=== PATIENT | male | born 1970 ===

== ENCOUNTER 2017-10-17 09:27 | Emergency (ER) | payer OTHER ==
[2017-10-17 09:46] VITALS: BMI 28.3
[2017-10-17 09:48] VITALS: BP 124/82; PULSE 85; TEMP 98.9
--- NOTE | 2017-10-17 09:56 | C.PDOC ---
History Of Present Illness 47 years old male presents to ED for complaints of shortness of breath. Patient reports nasal congestion and unable to breathe through nose. He also reports non-productive cough and chest congestion that began 3 days ago. Denies chest pain, Hx of asthma or any other physical complaints. Time Seen by Provider: 10/17/17 09:49 Chief Complaint (Nursing): Shortness Of Breath History Per: Patient History/Exam Limitations: no limitations Onset/Duration Of Symptoms: Days (3) Current Symptoms Are (Timing): Still Present Location Of Pain: None Sick Contacts (Context): None Associated Symptoms: Cough (Non-productive ), Nasal Congestion. denies: Fever, Chills, Nausea, Vomiting, Diarrhea Ear Symptoms: Bilateral: None Recent travel outside of the [place]: No Past Medical History Reviewed: Historical Data, Nursing Documentation, Vital Signs Vital Signs: Last Vital Signs Temp 98.9 F 10/17/17 09:47 Pulse 85 10/17/17 09:47 Resp 18 10/17/17 10:21 BP 124/82 10/17/17 09:47 Pulse Ox 99 10/17/17 11:02 - Medical History PMH: No Chronic Diseases Surgical History: Appendectomy Family History: States: Unknown Family Hx - Social History Hx Alcohol Use: Yes Hx Substance Use: No - Immunization History Hx Tetanus Toxoid Vaccination: No Hx Influenza Vaccination: No Hx Pneumococcal Vaccination: No Review Of Systems Constitutional: Negative for: Fever, Chills Cardiovascular: Negative for: Chest Pain Respiratory: Positive for: Cough (Non-productive ), Shortness of Breath Gastrointestinal: Negative for: Nausea, Vomiting, Abdominal Pain, Diarrhea Skin: Negative for: Rash Neurological: Negative for: Weakness, Numbness Physical Exam - Physical Exam Appears: Well, Non-toxic, No Acute Distress Skin: Warm, Dry Head: Atraumatic, Normacephalic Eye(s): bilateral: Normal Inspection, EOMI Ear(s): Bilateral: Normal Nose: Normal, No Flaring, No Discharge Oral Mucosa: Moist Neck: Supple Chest: Symmetrical, No Tenderness Cardiovascular: Rhythm Regular, No Murmur Respiratory: Normal Breath Sounds, No Decreased Breath Sounds, No Rales, No Rhonchi, No Wheezing Gastrointestinal/Abdominal: Bowel Sounds (Active ), Soft, No Tenderness, No Guarding Extremity: Bilateral: Atraumatic, Normal Color And Temperature, Normal ROM Neurological/Psych: Oriented x3, Normal Speech, Other (No focal deficits ) Gait: Steady ED Course And Treatment O2 Sat by Pulse Oximetry: 99 (RA) Pulse Ox Interpretation: Normal Medical Decision Making Medical Decision Making: Impression: URI Administered Zithromax Patient remained afebrile alert and oriented with stable vital signs during ER evaluation. Instructed to return to ER if symptoms worsen or new symptoms arise. Disposition Counseled Patient/Family Regarding: Diagnosis, Need For Followup, Rx Given - Disposition Referrals: [facility] [Outside] [facility] [Outside] Disposition: HOME/ ROUTINE Disposition Time: 09:56 Condition: STABLE Additional Instructions: Vaya a tyson mdico o la clnica en 2-5 cheney sin falta, para mas evaluacin. Ratamosa los medicamentos anyi indicado. Volver a la celia de emergencia en cualquier momento si los sntomas persisten o empeoran. Prescriptions: Albuterol HFA [Ventolin HFA 90 mcg/actuation (8 g)] 1 puff IH Q4 #1 puff Azithromycin [Zithromax] 250 mg PO DAILY #4 tab Benzonatate [Tessalon Perles] 100 mg PO TID #30 sgl Sodium Chloride [Saline Nasal Mist] 126 ml NS TID #1 mist Instructions: Bacterial Upper Respiratory Infection, Adult (DC) Print Language: IRISH - POA Present On Arrival: None - Clinical Impression Clinical Impression: Respiratory tract infection - PA / SUPERVISOR PREP / Resident Statement MD/DO has reviewed & agrees with the documentation as recorded. - Scribe Statement The provider has reviewed the documentation as recorded by the Scribjaclyn Dinh All medical record entries made by the [place]ibjaclyn were at my direction and personally dictated by me. I have reviewed the chart and agree that the record accurately reflects my personal performance of the history, physical exam, medical decision making, and the department course for this patient. I have also personally directed, reviewed, and agree with the discharge instructions and disposition.
[2017-10-17 10:21] VITALS: RESP 18
[2017-10-17 10:41] VITALS: O2SAT 99
== END 2017-10-17 10:22 | disposition home or self-care (01) ==
LOC: C.ER 09:27
DX: J98.8 Other specified respiratory disorders (principal)

== ENCOUNTER 2017-10-31 17:19 | Emergency (ER) | payer SELFPAY ==
[2017-10-31 17:20] VITALS: BMI 28.3
--- NOTE | 2017-10-31 17:43 | C.PDOC ---
History Of Present Illness 47 y/o male presents to the ED complaining of a generalized headache that began today. Associated with 3 day history of diarrhea. Patient also developed a fever , cough, and vomiting yesterday. Was seen here on 10/17 and discharged home on Zithromax, Tessalon Perles, ventolin inhaler, and saline nasal spray. Patient states he completed the antibiotics last week without significant relief of symptoms. He denies taking any medication for symptom relief today. Otherwise patient denies any chest pain, SOB, dizziness, numbness, tingling, extremity weakness, changes in vision, or other associated symptoms. 10/17 Albuterol HFA [Ventolin HFA 90 mcg/actuation (8 g)] 1 puff IH Q4 #1 puff Azithromycin [Zithromax] 250 mg PO DAILY #4 tab Benzonatate [Tessalon Perles] 100 mg PO TID #30 sgl Sodium Chloride [Saline Nasal Mist] 126 ml NS TID #1 mist Time Seen by Provider: 10/31/17 17:42 Chief Complaint (Nursing): Fever History Per: Patient History/Exam Limitations: no limitations Onset/Duration Of Symptoms: Days Current Symptoms Are (Timing): Still Present Location Of Pain: Headache Associated Symptoms: Fever, Vomiting, Diarrhea Past Medical History Reviewed: Historical Data, Nursing Documentation, Vital Signs Vital Signs: Last Vital Signs Temp 100.1 F H 10/31/17 19:46 Pulse 79 10/31/17 19:46 Resp 16 10/31/17 19:46 BP 101/41 L 10/31/17 19:46 Pulse Ox 97 10/31/17 19:46 Surgical History: Appendectomy Family History: States: Unknown Family Hx - Social History Hx Alcohol Use: Yes Hx Substance Use: No - Immunization History Hx Tetanus Toxoid Vaccination: No Hx Influenza Vaccination: No Hx Pneumococcal Vaccination: No Review Of Systems Except As Marked, All Systems Reviewed And Found Negative. Constitutional: Positive for: Fever. Negative for: Sweats Eyes: Negative for: Vision Change Cardiovascular: Negative for: Chest Pain, Palpitations Respiratory: Positive for: Cough. Negative for: Shortness of Breath Gastrointestinal: Positive for: Vomiting, Diarrhea Neurological: Positive for: Headache. Negative for: Weakness, Numbness, Incoordination, Change in Speech, Dizziness Physical Exam - Physical Exam Appears: Non-toxic, No Acute Distress Skin: Normal Color, Warm, Dry Head: Atraumatic, Normacephalic Eye(s): bilateral: Normal Inspection, PERRL, EOMI Nose: Normal Oral Mucosa: Moist Neck: Supple Chest: Symmetrical Cardiovascular: Rhythm Regular, No Murmur Respiratory: Normal Breath Sounds, No Rhonchi, No Wheezing, Other (NARD) Gastrointestinal/Abdominal: Soft, No Tenderness, No Distention, No Guarding Extremity: Bilateral: Atraumatic, Normal Color And Temperature, Normal ROM Pulses: Left Radial: Normal, Right Radial: Normal Neurological/Psych: Oriented x3, Normal Speech ED Course And Treatment - Laboratory Results Result Diagrams: 10/31/17 18:30 10/31/17 18:27 O2 Sat by Pulse Oximetry: 100 (RA) Pulse Ox Interpretation: Normal - Radiology CXR: Interpreted by [place] CXR Interpretation: Yes: No Acute Disease - CT Scan/US Head CT Other Rad Studies (CT/US): Read By Radiologist, Radiology Report Reviewed CT/US Interpretation: Name: LULA CORDOBA Age: 47Years M Date: 10/31/2017. Requesting Physician: Deann Hua : 1970. [facility] Procedure Ordered As Accession Number of Images. CT HEAD WO CT HEAD W O CONTRAST [id number]. Provided Clinical History: HEADACHE FEVER. EXAM: CT Head Without Intravenous Contrast. EXAM DATE/TIME: 10/31/2017 6:17 PM. CLINICAL HISTORY: 47 years old, male; Condition or disease; Headache; Headache not specified; Additional info: Headache fever. TECHNIQUE: Axial computed tomography images of the head/brain without intravenous contrast. All CT scans at. this facility use at least one of these dose optimization techniques: automated exposure control; mA. and/or kV adjustment per patient size ( includes targeted exams where dose is matched to clinical. indication); or iterative reconstruction. Coronal and sagittal reformatted images were created and reviewed. COMPARISON: No relevant prior studies available. FINDINGS: Brain: No hemorrhage. No significant white matter disease. No edema. Few nonspecific punctate. cortical calcifications. Ventricles: Unremarkable. No ventriculomegaly. Bones/joints: Unremarkable. No acute fracture. Soft tissues : Unremarkable. Sinuses: Unremarkable as visualized. No acute sinusitis. Mastoid air cells: Unremarkable as visualized. No mastoid effusion. IMPRESSION : No acute intracranial finding. Progress - Re-Evaluation Re-evaluation Note: 10/31/17 20:27 NONTOXIC FEELS BETTER NAD - Data Reviewed Data Reviewed: Lab, Diagnostic imaging, EKG, Old records Medical Decision Making Medical Decision Making: Initial Plan: --EKG --VBG --Lipase --Magnesium --Phosphorous --CMP --CBC --UA --Chest X-Ray --Urine culture --Blood culture --IV fluids --Toradol 30 mg IVP --Tylenol 975 mg PO --CT Head w/o contrast Disposition Counseled Patient/Family Regarding: Studies Performed, Diagnosis, Need For Followup, Rx Given - Disposition Referrals: [facility] [Outside] [facility] [Outside] Disposition: HOME/ ROUTINE Disposition Time: 20:27 Condition: IMPROVED Prescriptions: Amoxicillin/Clavulanate [Augmentin 875 MG-125 MG] 1 tab PO BID #14 tab Instructions: Fever, Adult (DC) Forms: [facility] (Dominican) Print Language: SYRIAN - Clinical Impression Clinical Impression: Fever, unknown origin - Scribe Statement The provider has reviewed the documentation as recorded by the Gricel Ferreira Provider Attestation: All medical record entries made by the [place]ibjaclyn were at my direction and personally dictated by me. I have reviewed the chart and agree that the record accurately reflects my personal performance of the history, physical exam, medical decision making, and the department course for this patient. I have also personally directed, reviewed, and agree with the discharge instructions and disposition.
[2017-10-31] MEDS ORDERED: Sodium Chloride 0.9% 1,000 ML IV STA (18:18)
[2017-10-31 18:33] LABS: BASO % 0.2 % (0.0-2.0); LYMPH # 0.8 K/uL (1.0-4.3); LYMPH % 9.1 % (20.0-40.0); MEAN CELL VOLUME 83.7 fL (80.0-94.0); MEAN CORPUSCULAR HEMOGLOBIN 27.9 pg (27.0-31.0); MEAN CORPUSCULAR HGB CONC 33.4 g/dL (33.0-37.0); MEAN PLATELET VOLUME 10.6 fL (7.2-11.7); MONO # 0.4 K/uL (0.0-0.8); MONO % 3.9 % (0.0-10.0); NEUT # 7.9 K/uL (1.8-7.0); NEUT % 86.8 % (50.0-75.0); PLATELET COUNT 185 K/uL (130-400); RBC 5.72 Mil/uL (4.40-5.90); RED CELL DISTRIBUTION WIDTH 13.1 % (11.5-14.5); WHITE BLOOD COUNT 9.1 K/uL (4.8-10.8)
[2017-10-31 18:38] LABS: VENOUS BLOOD GAS BASE EXCESS -8.6 mmol/L (0.0-2.0); VENOUS BLOOD GAS PCO2 26 mmHg (40-60); VENOUS BLOOD GAS PO2 37 mm/Hg (30-55); VENOUS BLOOD PH 7.37 (7.32-7.43)
[2017-10-31 18:47] LABS: ALB/GLOB RATIO 1.6 (1.0-2.1); ALBUMIN 4.9 g/dL (3.5-5.0); ALT/SGPT 62 U/L (21-72); AST/SGOT 33 U/L (17-59); BLOOD UREA NITROGEN 15 mg/dL (9-20); CALCIUM 9.2 mg/dl (8.6-10.4); GFR NON-AFRICAN AMERICAN > 60; LIPASE 119 U/L (23-300)
[2017-10-31] MEDS ORDERED: Potassium Chloride 20 mEq/15 ml LIQ UD PO STA (19:01)
[2017-10-31 19:06] LABS: BANDS 2 % (0-2); LYMPHOCYTE 11 % (20-40); MONOCYTE 4 % (0-10); NEUTROPHIL 82 % (50-75); PLATELET ESTIMATE NORMAL (NORMAL); REACTIVE LYMPHOCYTES 1 % (0-0); TOTAL CELLS COUNTED 100
[2017-10-31] MEDS ORDERED: Potassium Chloride 20 mEq ER Tab PO ONE (19:31)
[2017-10-31 20:07] LABS: URINE BILIRUBIN NEGATIVE (NEGATIVE); URINE CLARITY Clear (Clear); URINE COLOR Yellow (YELLOW); URINE GLUCOSE (UA) NORMAL (Normal); URINE LEUKOCYTE ESTERASE NEG Leu/uL (Negative); URINE PROTEIN NEGATIVE (NEGATIVE); URINE UROBILINOGEN NORMAL mg/dL (0.2-1.0)
[2017-10-31 20:09] LABS: URINE BLOOD 1+ (NEGATIVE)
[2017-10-31] MEDS ORDERED: Amoxicillin-Clav 875-125 mg Tab PO STA (20:25)
[2017-10-31 20:29] VITALS: O2SAT 100
[2017-10-31] MEDS ORDERED: Amoxicillin-Clav 875-125 mg Tab PO ONE (20:33)
[2017-10-31 20:42] VITALS: BP 102/49; PULSE 70; RESP 20; TEMP 98.5
--- NOTE | 2017-11-01 08:36 | CT ---
Date of service: 10/31/2017 PROCEDURE: CT HEAD WITHOUT CONTRAST. HISTORY: HEADACHE FEVER COMPARISON: Move collection TECHNIQUE: Axial computed tomography images were obtained through the head/brain without intravenous contrast. Radiation dose: Total exam DLP = 1086 mGy-cm. This CT exam was performed using one or more of the following dose reduction techniques: Automated exposure control, adjustment of the mA and/or kV according to patient size, and/or use of iterative reconstruction technique. FINDINGS: HEMORRHAGE: No intracranial hemorrhage. BRAIN: No mass effect or edema. No atrophy or chronic microvascular ischemic changes. Few nonspecific cortical calcifications. VENTRICLES: Unremarkable. No hydrocephalus. CALVARIUM: Unremarkable. PARANASAL SINUSES: Unremarkable as visualized. No significant inflammatory changes. MASTOID AIR CELLS: Unremarkable as visualized. No inflammatory changes. OTHER FINDINGS: None. IMPRESSION: No acute intracranial abnormality. If symptoms persists, consider correlation with MRI. These findings were preliminarily reported at 7:23 p.m. on 10/31/[address] Gallito Maxwell from [facility].
--- NOTE | 2017-11-01 10:15 | RAD ---
Date of service: 10/31/2017 HISTORY: FEVER COUGH COMPARISON: No prior. TECHNIQUE: Chest PA and lateral FINDINGS: LUNGS: No active pulmonary disease. PLEURA: No significant pleural effusion identified. No pneumothorax apparent. CARDIOVASCULAR: Normal. OSSEOUS STRUCTURES: No significant abnormalities. VISUALIZED UPPER ABDOMEN: Normal. OTHER FINDINGS: None. IMPRESSION: No acute cardiopulmonary disease appreciated.
== END 2017-10-31 20:41 | disposition home or self-care (01) ==
LOC: C.ER 17:19
DX: R50.9 Fever, unspecified (principal); E87.6 Hypokalemia
CPT/HCPCS: 70450; 71046; 80053; 81001; 82803; 83690; 83735; 84100; 85025; 87040; 87086; 96361; 96374; 99285; J1885; J7030